=== PATIENT | female | born 1960 | race Caucasian/White ===

== ENCOUNTER 2023-09-02 08:17 | Emergency (ER) | payer OTHER, SELFPAY ==
[2023-09-02] VITALS (10 sets, daily range): BP systolic 133–185; BP diastolic 66–84; PULSE 67–73; BMI 29.3
--- NOTE | 2023-09-02 08:34 | ED.GENMED ---
History of Present Illness
General
Chief Complaint: Dizziness
Source: patient
Exam Limitations: none
Time Seen by Provider: 09/02/23 08:33
Travel History
Have you had any contact with someone who has COVID-19?: No
Do you have any symptoms of coronavirus? Fever > 100 degrees, chills, cough, shortness of breath, sore throat, loss of taste or smell, muscle aches, or headache?: No
History of Present Illness
History of Present Illness:
62-year-old female presents with the onset of dizziness starting this morning. She states she got up from bed and felt dizzy. There is no headache chest pain or shortness of breath. No fever. She has been slightly congested recently. 3 weeks
ago, her metoprolol was cut in half from 25mg daily to 12.5 daily. No unilateral arm numbness or weakness. No vision change.
Past History
Past History
ED Past Medical History: None
Social History
Tobacco: Non-smoker
Personal:
Living: with family
Phy Exam
Physical Exam
Physical Exam:
General: Well-appearing female no acute respiratory distress
HEENT: Normocephalic atraumatic subtle nystagmus noted horizontally TMs normal mucosa moist neck is supple heart: Regular rate and rhythm no murmurs
Lungs: Clear to auscultation bilaterally no wheezing
Neurologic exam: Alert and oriented x 3 no facial asymmetry finger-nose intact [id number] intact. Dizziness is reproducible by position change. No facial asymmetry or slurred speech
Extremities: No cyanosis or edema
Skin: Warm no rash or lesions
Course
Orders/Labs/Results
Orders:
Orders
09/02/23
Electrocardiogram (*1) Stat
Reason for Study: Chest Pain
Comment: DONE
09/02/23 08:33
0.9% Sodium Chloride 1000 ml [Nss] 1,000 ml IV BOLUS
Meclizine [Antivert] 25 mg PO NOW STA
09/02/23 08:38
COVID-19 Antigen Urgent
Source: Nasal Swab
Complete Blood Count/With Diff Urgent
09/02/23 09:15
Comprehensive Metabolic Panel Routine
09/02/23 11:10
Orthostatic VS- Treatment ONCE
09/02/23 12:58
diazePAM [Valium Injection] 2 mg IV NOW STA
Abnormal Lab Results
09/02/23
09:15
Glucose 109 H mg/dl
(70-99)
Total Protein 6.2 L g/dl
(6.3-8.2)
09/02/23 08:38
09/02/23 09:15
Vital Signs
Initial and Last Documented VS:
Initial Vital Signs
Temp Pulse Resp BP Pulse Ox
98.2 F 78 16 185/84 98
09/02/23 08:20 09/02/23 08:20 09/02/23 08:20 09/02/23 08:20 09/02/23 08:20
Last Documented Vital Signs
Temp Pulse Resp BP Pulse Ox
98.2 F 71 18 133/70 96
09/02/23 08:20 09/02/23 13:00 09/02/23 13:00 09/02/23 13:00 09/02/23 11:21
MDM/Problems Addressed
Differential Diagnosis Includes:
Dizziness. Question possible orthostasis versus vertigo. No sign of stroke on exam
Check vitals. Check basic labs. Patient has been congested other people in her office have been sick. Will check for COVID. Try meclizine. Will hydrate.
*Critical Care Note
Total Time (30-74mins, 75-104mins- exclusive of procedures): Not Applicable
Update Note
Update Note:
EKG shows sinus rhythm with a rate of 75 no ischemic changes
Patient reevaluated multiple times for now feeling better. Dizziness has improved. Suspect underlying positional vertigo. Do not suspect CVA. Will discharge home on meclizine. Stable for discharge
ED Attending Note
-
Portions of this chart may have been created with voice recognition software.� Occasional wrong word or��sound alike� substitutions may have occurred due to the inherent limitations of voice recognition software.
Discharge Plan
Departure
Patient Disposition: Home (Routine Discharge)
Date of Disposition: 09/02/23
Time of Disposition: 14:04
Patient with high blood pressure during this ER visit?: No
Discharge Problem:
Dizziness
Prescriptions:
New
meclizine 25 mg tablet
25 mg PO TID PRN (Reason: dizziness) Qty: 10 0RF
No Action
hydrocodone-acetaminophen 5 MG/500 MG tablet
1 tab PO .Q4-6HPRN PRN (Reason: PAIN) Qty: 20 0RF
methylprednisolone [Medrol (Mathieu)] 4 MG/DOSE-PACK tablets,dose pack
4 mg PO . DIRECTED Qty: 1 0RF
Rx Instructions:
Take as instructed on package.
cephalexin 500 MG capsule
500 mg PO QID Qty: 40 0RF
hydrocodone-acetaminophen [Vicodin] 1 EACH tablet
1 tab PO Q6HPRN PRN (Reason: hand pain) Qty: 4 0RF
Referrals:
Simon Little MD [Family Provider] -
Activity Restrictions/Additional Instructions:
Rest. Use meclizine if needed. Return for worsening symptoms otherwise follow-up with your doctor
Interventions
Interventions:
*Risk Screen - Suicide Last Done: 09/02/23 08:25
*General Assessment Last Done: 09/02/23 08:25
*Neglect/Abuse Screening Last Done: 09/02/23 08:25
*ED COVID-19 Vaccine History Last Done: 09/02/23 08:25
ED- Neurological Assessment Last Done: 09/02/23 08:25
ED Swallowing Screen Last Done: 09/02/23 08:32
[2023-09-02] MEDS: NSS 1000 IV (08:39)
[2023-09-02] MEDS: ANTIVERT 25 MG PO (08:39)
[2023-09-02 09:03] LABS: % Basophils 0.8 % (0-2); % Eosinophils 4.4 % (0-6); % Immature Granulocytes 0.2 % (0-0.5); % Lymphocytes 29.8 % (20.5-51.1); % Monocytes 7.7 % (1.7-9.3); % Neutrophils 57.1 % (42.2-75.2); Absolute Eosinophils 0.2 10^3/uL (0-0.7); Absolute Lymphocytes 1.6 10^3/uL (1.2-3.4); Absolute Monocytes 0.4 10^3/uL (0.1-0.6); COVID-19 Antigen Negative (Negative); Hematocrit 39.5 % (37.0-47.0); Hemoglobin 13.6 g/dL (12.0-16.0); Mean Corp Hgb Conc. 34.4 g/dL (33.0-37.0); Mean Corpuscular Hgb 30.5 pg (27.0-31.0); Mean Corpuscular Volume 88.6 fL (81.0-99.0); Mean Platelet Volume 9.4 fL (7.4-10.4); Nucleated Red Blood Cells % 0 %; Platelet Count 202 10^3/uL (130-400); Red Blood Cell Count 4.46 10^6/uL (4.20-5.40); Red Cell Dist. Width 13.2 % (11.5-14.5); White Blood Cell Count 5.2 10^3/uL (4.8-10.8)
[2023-09-02 09:39] LABS: ALT (SGPT) 24 U/L (0-35); AST (SGOT) 29 U/L (14-36); Albumin 3.8 g/dl (3.5-5.0); Alkaline Phosphatase 56 U/L (38-126); Blood Urea Nitrogen 13 mg/dl (7-17); Calcium 9.6 mg/dl (8.4-10.2); Carbon Dioxide 28 mmol/L (22-30); Chloride 102 mmol/L (98-107); Estimated Creatinine Clearance 93 ml/min; Glucose 109 mg/dl (70-99); Potassium 4.2 mmol/L (3.5-5.1); Sodium 139 mmol/L (135-145); Total Bilirubin 0.7 mg/dl (0.2-1.3); Total Protein 6.2 g/dl (6.3-8.2); eGFR > 60.00
[2023-09-02] MEDS: VALIUM INJECTION 2 MG IV (13:07)
== END 2023-09-02 14:53 | disposition home or self-care (01) ==
LOC: EMR 08:17
PROVIDERS: Physician Assistant; EMERGENCY PHYSICIAN Emergency Medicine; FAMILY PHYSICIAN Internal Medicine
DX: R42 Dizziness and giddiness (principal); R09.81 Nasal congestion; Z11.52 Encounter for screening for COVID-19
CPT/HCPCS: 99284; 96374; 96361; 80053; 85025; 87811; 93005